=== PATIENT | female | born 1975 | race Caucasian/White ===

== ENCOUNTER 2016-04-10 10:08 | Emergency (ER) | payer SELFPAY ==
[~2016-04-10] VITALS: Ht 167.6 cm; Wt 77.3 kg
[~2016-04-10 10:08] MED LIST: CORTISPORIN OTI10 M2 OT; UNISOM25 MG PO
[2016-04-10 10:16] VITALS: BP 157/95; PULSE 106; TEMP 98.5
[2016-04-10] MEDS ORDERED: EXCEDRIN1 TAB PO (10:21)
[2016-04-10] MEDS ORDERED: PREDNISONE20 MG PO (10:37)
== END 2016-04-10 10:45 | disposition home or self-care (01) ==
LOC: COL.ER 10:08
DX: R21 Rash and other nonspecific skin eruption (principal)

== ENCOUNTER 2016-04-16 07:11 | Emergency (ER) | payer SELFPAY ==
[~2016-04-16] VITALS: Ht 167.6 cm; Wt 77.3 kg
[~2016-04-16 07:11] MED LIST changes: +EXCEDRIN1 TAB PO; +PREDNISONE20 MG PO
[2016-04-16 07:14] VITALS: BP 153/101; PULSE 118; TEMP 98.9
[2016-04-16] MEDS ORDERED: MELATONIN3 MG PO (07:34)
[2016-04-16] MEDS ORDERED: DOXYCYCLINE 10100 MG PO (07:41)
== END 2016-04-16 08:07 | disposition home or self-care (01) ==
LOC: COL.ER 07:11
DX: R21 Rash and other nonspecific skin eruption (principal)
CPT/HCPCS: J1100